=== PATIENT | male | born 1965 | race Caucasian/White ===

== ENCOUNTER 2016-07-15 06:38 | Observation (INO) | payer OTHER ==
[~2016-07-15] VITALS: Ht 182.9 cm; Wt 136.1 kg
--- NOTE | ~2016-07-15 | D ---
[facility] [place] [address] DISCHARGE SUMMARY Name: LISA DIAZ Room #: 209-P [facility] Eleuterio Posada#: [id number] Admission: 07/15/16 Attend Phys: Jose Antonio Ochoa MD Discharge: 07/16/16 Date of : 67 Report #: [id number] THIS REPORT FOR: //name// CC: Jose Antonio Leach DATE OF SERVICE: 07/16/2016 DIAGNOSIS: Nonischemic cardiomyopathy. PROCEDURES PERFORMED: [employer] single chamber ICD implantation. HISTORY: The patient is a 51-year-old with nonischemic cardiomyopathy, who has been on optimal medical therapy and was here for ICD implantation for primary prevention of sudden cardiac . He underwent successful [employer] single chamber ICD implantation. HOSPITAL COURSE: The patient was monitored overnight, received IV antibiotics. The following day, device check showed normal device function with no arrhythmias noted. On telemetry, he remained in sinus rhythm with occasional PVCs. His chest x-ray on the day of discharge showed stable lead position with no evidence of pneumothorax. As such, he was deemed stable for discharge home. Discharge instructions were reviewed. He was instructed to follow up with me in 7-10 days. <ELECTRONICALLY SIGNED> By: Jose Antonio Ochoa MD 07/16/16 1455 [id number] Jose Antonio Ochoa MD /nt
--- NOTE | ~2016-07-15 | H ---
[facility] [place] [address] HISTORY AND PHYSICAL Name: LISA DIAZ Room #: 209-P [facility] Eleuterio Posada#: [id number] Admission: 07/15/16 Attend Phys: Jose Antonio Ochoa MD Discharge: 07/16/16 Date of : 67 Report #: [id number] THIS REPORT FOR: //name// For History and Physical, please see office documentation/handwritten note in the patient's medical record. <ELECTRONICALLY SIGNED> By: Jose Antonio Ochoa MD 07/23/16 1226 1500 Jose Antonio Ochoa MD /
--- NOTE | ~2016-07-15 | P ---
[facility] [place] [address] PROCEDURE REPORT Name: LISA DIAZ [id number]: 07/15/16 Attend Phys: Jose Antonio Ochoa MD Discharge: 07/16/16 Date of : 67 Report #: [id number] THIS REPORT FOR: //name// CC: Jose Antonio Leach ICD IMPLANTATION DATE OF PROCEDURE: 07/15/2016. PREOPERATIVE DIAGNOSIS: Nonischemic cardiomyopathy. POSTOPERATIVE DIAGNOSIS: Nonischemic cardiomyopathy. BRIEF HISTORY: The patient is a 51-year-old male with a history of a nonischemic cardiomyopathy, who has been on optimal medical therapy who is here for ICD implantation for primary prevention of sudden cardiac . ANESTHESIA: The patient underwent MAC anesthesia with no anesthesia related complications. He did have problems with secretions and coughing, but no true complications. PROCEDURE IN DETAIL: The patient underwent informed consent were discussed the details of the procedure including the risks, which include but not limited to bleeding, infection, vascular damage, cardiac perforation and pneumothorax. He understood these risks and was willing to proceed. As such, he is brought to the EP laboratory in a fasting and nonsedated state and prepped and draped in a sterile fashion. He received contrast dye allergy prepped prior to the procedure. He received IV antibiotics prior to initiation of the procedure. Next, I injected 20 mL of lidocaine under the left clavicle. Incision was made. A pocket was created over the prepectoral fascia. Next, I attempted to obtain access to the left axillary vein and this was quite challenging due to his obesity. I performed a second venogram to again localized the veins. Eventually using a very steep angle, I was able to access the vein as it was quite deep. Next, I advanced a guidewire into the right atrium under fluoroscopy and placed sheath using the modified Seldinger technique and I positioned the lead into the right ventricular apex with adequate pacing and sensing thresholds. Of note, placing this lead was also somewhat challenging due to his enlarged heart was hard to cross the tricuspid annulus, but eventually with several different stylets I was able to gain access to the right ventricle. The RV lead had adequate pacing and sensing thresholds. I left a good amount of slack in the lead due to a size. I then sutured the lead to the prepectoral fascia using Ethibond suture. I irrigated the pocket with vancomycin and then closed the pocket in 3 layers using 2-0 for the deep layer, 3-0 for the mid layer and 4-0 for the subcuticular layer. Surgical glue was placed on the outer skin layer. The patient awoke neurologically and hemodynamically intact with no complications and no significant bleeding. [address] [address] PROCEDURE REPORT Name: LISA DIAZ Room #: 209-P [facility] Eleuterio Posada#: [id number] Admission: 07/15/16 Attend Phys: Jose Antonio Ochoa MD Discharge: 07/16/16 Date of : 67 Report #: [id number] The implanted device was a [employer] model # [id number], serial #[id number] with an RV lead that was a [employer] model #7120Q, 65 cm, serial #[id number] with a R-wave of 11.7 millivolts, pacing impedance of 840 ohms, the pacing threshold 0.5 volts at 0.5 milliseconds. The device is programmed to the VVI 40 mode, zone was set at greater than 222 beats per minute with ATP while charging followed by max output shocks and the VT zone was set from 181-222 beats per minute with three rounds of bursts followed by 3 rounds of ramp followed by max output shocks. CONCLUSIONS: 1. Successful single chamber ICD implantation. 2. Satisfactory right ventricular pacing and sensing thresholds. <ELECTRONICALLY SIGNED> By: Jose Antonio Ochoa MD 07/16/16 1454 [id number] Jose Antonio Ochoa MD /nt
[2016-07-15] MEDS ORDERED: LIPITOR 20 MG T20 M1 PO (07:01)
[2016-07-15] MEDS ORDERED: COREG25 MG PO (07:02)
[2016-07-15] MEDS ORDERED: ASPIR 8181 M1 PO (07:02)
[2016-07-15] MEDS ORDERED: LASIX 40 MG TAB40 M2 PO (07:02)
[2016-07-15] MEDS ORDERED: ENTRESTO 49 MG1 EACH PO (07:02)
[2016-07-15] MEDS ORDERED: SPIRONOLACTONE25 M1 PO (07:03)
[2016-07-15 07:13] VITALS: BP 105/64
[2016-07-15 07:35] LABS: ABSOLUTE NEUTROPHILS 3.6 thou/uL (1.4-8.2); BASOPHILS 0.4 % (0.0-2.0); HEMATOCRIT 40.9 % (42.0-52.0); LYMPHOCYTES 23.7 % (24.0-44.0); MCH 29.6 pg (26.0-34.0); MCHC 34.1 % (28.0-37.0); MCV 86.8 fL (80.0-100.0); MONOCYTES 11.5 % (1.0-8.0); PLATELET COUNT 152 thou/uL (150-400); POLYS 60.4 % (36.0-66.0); RBC 4.72 mil/uL (4.50-6.00); RDW 14.9 % (10.5-14.5)
[2016-07-15 07:37] LABS: MANUAL DIFF NO
[2016-07-15 07:44] LABS: CALCIUM 9.2 mg/dL (8.5-10.1); CREATININE 1.3 mg/dL (0.6-1.3); POTASSIUM 4.4 mmol/L (3.5-5.1)
[2016-07-15 07:49] LABS: ALBUMIN 4.3 g/dL (3.4-5.0); TOTAL BILIRUBIN 0.8 mg/dL (<0.1-1.0); TOTAL PROTEIN 7.3 g/dL (6.4-8.2)
[2016-07-15 07:50] LABS: APTT 26.3 Seconds (24.5-32.8); INR 1.1; PROTIME 10.9 Seconds (9.3-11.4)
[2016-07-15 12:02] VITALS: BP 100/62
[2016-07-15 20:07] VITALS: BP 91/56
[2016-07-15 20:09] VITALS: BP 91/56
[2016-07-15 23:28] VITALS: BP 88/48
[2016-07-15 23:30] VITALS: BP 88/48
[2016-07-16 02:42] VITALS: BP 108/68
[2016-07-16 07:15] VITALS: BP 104/50
[2016-07-16 11:17] VITALS: BP 104/50
[2016-07-16 11:20] VITALS: BP 96/63
== END 2016-07-16 11:54 | disposition home or self-care (01) ==
LOC: CATH 06:38 → 2N 12:17 → CATH 12:25 → 2N 07-16 11:54
PROVIDERS: Internal Medicine Cardiovascular Disease
DX: I25.119 Atherosclerotic heart disease of native coronary artery with unspecified angina pectoris (principal); I11.0 Hypertensive heart disease with heart failure; I42.9 Cardiomyopathy, unspecified; E78.00 Pure hypercholesterolemia, unspecified; Z98.890 Other specified postprocedural states; Z91.041 Radiographic dye allergy status; Z79.82 Long term (current) use of aspirin; Z79.899 Other long term (current) drug therapy; Z23 Encounter for immunization